=== PATIENT | male | born 2005 | race Two or more races ===

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

== ENCOUNTER 2023-07-18 10:26 | Emergency (ER) | payer MEDICAID, OTHER ==
[~2023-07-18] VITALS: Ht 172.7 cm; Wt 76.8 kg
[~2023-07-18 10:26] MED LIST: BUDE1AER4 IN; PRED20TA2 PO
[2023-07-18] MEDS ORDERED: NAP500T PO (13:44)
[2023-07-18 13:59] VITALS: BP 130/85; PULSE 75; RESP 16; TEMP 98; O2SAT 99
== END 2023-07-18 14:31 | disposition home or self-care (01) ==
LOC: ER 10:26
DX: M79.18 Myalgia, other site (principal); J45.909 Unspecified asthma, uncomplicated; V43.52XA Car driver injured in collision with other type car in traffic accident, initial encounter; Y93.89 Activity, other specified; Y92.89 Other specified places as the place of occurrence of the external cause; Y99.8 Other external cause status
CPT/HCPCS: 71045